=== PATIENT | female | born 1965 | race Caucasian/White ===

== ENCOUNTER 2017-02-21 16:04 | Emergency (ER) | payer SELFPAY ==
[2017-02-21 16:25] VITALS: RESP 16; TEMP 98.2
[2017-02-21] MEDS ORDERED: OXYCODONE/APAP 5/325 TAB PO ONE (17:17)
[2017-02-21] MEDS ORDERED: TDAP ADULT 0.5 ML INJ (BOOSTRIX) IM ONE (17:17)
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
[2017-02-21 19:45] VITALS: BP 108/68; PULSE 63; O2SAT 93
== END 2017-02-21 19:45 | disposition home or self-care (01) ==
PROC: 0HQEXZZ Repair Left Lower Arm Skin, External Approach (ICD-10-PCS; principal; 2017-02-21)
DX: S51.012A Laceration without foreign body of left elbow, initial encounter (principal); S50.312A Abrasion of left elbow, initial encounter; Z23 Encounter for immunization; V18.4XXA Pedal cycle driver injured in noncollision transport accident in traffic accident, initial encounter; Y92.410 Unspecified street and highway as the place of occurrence of the external cause; Y99.8 Other external cause status; Y93.55 Activity, bike riding